=== PATIENT | female | born 1965 | race Caucasian/White ===

== ENCOUNTER 2017-07-04 13:13 | Outpatient (CLI) | payer MEDICARE ==
[~2017-07-04 13:13] MED LIST: Gadobenate Dimeglumine 529 MG/1 ML (20ML VIAL) ONE
--- NOTE | 2017-07-04 16:31 | MRI ---
MRI OF LUMBAR SPINE WITHOUT AND WITH CONTRAST: COMPARISON: None. HISTORY: L5 radiculopathy. Pain in the left leg and buttocks that extends to the foot. Chronic back pain th at worsening. The patient had back surgery in 2014. TECHNIQUE: Multiplanar, multisequence MR images were obtained of the lumbar spine without and with IV contrast. FINDINGS: Generalized disk desiccation and loss of intervertebral disk space height is seen. The vertebral zayda dies demonstrate normal height and alignment without fracture or subluxation. No significant marrow signal abnormality is seen. Edema and enhancement is seen in the paraspinal soft tissues including the medial paraspinal muscula ture. No focal fluid collection is seen. No significant enhancement of the bones is seen. The pat ient has had laminectomy at L4-5. No enhancement is seen within the central canal. There are foci of high T2 signal in the bilateral kidneys measuring up to 3.9 cm in size which repre sent cysts. The other prevertebral soft tissues are unremarkable. T12-L1: Unremarkable. L1-2: A moderate disk-osteophyte complex is seen. No posterior facet arthrosis. Mild to moderate central canal stenosis. Mild bilateral neural foraminal stenosis, left greater than right. L2-3: A small disk-osteophyte complex is seen. No posterior facet arthrosis. Moderate central can al stenosis. No right neural foraminal stenosis. Moderate left neural foraminal stenosis. L3-4: A small disk-osteophyte complex is seen. Mild bilateral posterior facet arthrosis. Mild panda tral canal stenosis. Moderate right and severe left neural foraminal stenosis. L4-5: A small disk-osteophyte complex is associated with a superimposed small central protrusion. No posterior facet arthrosis. No central canal stenosis. Moderate to severe bilateral neural kavon inal stenosis. L5-S1: A small disk-osteophyte complex is seen. No posterior facet arthrosis. No central canal st enosis. Mild bilateral neural foraminal stenosis. IMPRESSION: Degenerative changes of the lumbar spine as above. POS: ELIDIA
== END 2017-07-04 13:14 | disposition home or self-care (01) ==
LOC: SCSMRI 13:13
PROVIDERS: ATTEND Nurse Practitioner Family
DX: M47.26 Other spondylosis with radiculopathy, lumbar region (principal)
CPT/HCPCS: 72158; A9579

== ENCOUNTER 2017-07-15 14:07 | Outpatient (CLI) | payer MEDICARE ==
--- NOTE | 2017-07-15 19:57 | RAD ---
FOUR VIEWS LUMBAR SPINE: Date: 07-15-17 History: Lumbar radiculopathy. Patient complains of low back pain radiating down left leg. Comparison: 07-11-15 FINDINGS: Again, there are five non rib bearing lumbar type vertebral bodies. Multilevel degenerative changes are seen throughout the lumbar spine with multilevel osteophytes and narrowing of the intervertebral disc spaces at all levels. The vertebral body heights are within normal limits. No fracture or subl uxation is seen involving the lumbar spine. No abnormal translational motion is seen between the fle xion and extension views. There is mild right convex curvature of the lumbar spine. Surgical clips overlie the right upper quadrant. Gastric band is noted in place. IMPRESSION: Multilevel degenerative changes throughout the lumbar spine, overall similar to study of 07-11-15. N o fracture or subluxation seen. POS: ELIDIA
== END 2017-07-15 14:08 | disposition home or self-care (01) ==
LOC: TBSIIMAG 14:07
PROVIDERS: ATTEND Neurological Surgery
DX: M47.26 Other spondylosis with radiculopathy, lumbar region (principal)
CPT/HCPCS: 72120

== ENCOUNTER 2018-02-07 09:17 | Outpatient (CLI) | payer MEDICARE ==
[2018-02-07 10:58] LABS: Hemoglobin 13.7 g/dL (12.0-16.0); Mean Corpuscular HGB CONC 32.9 g/dL (32.0-36.0); Mean Corpuscular Hemoglobin 28.3 pg (27.0-31.0); Mean Corpuscular Volume 86.1 fl (81.0-99.0); Platelet Count 391 thou/uL (130-400); RBC Distribution Width 12.6 % (11.5-14.5); Red Blood Cell (RBC) Count 4.84 mill/uL (4.20-5.40); White Blood Cell (WBC) Count 10.5 thou/uL (4.8-10.8)
[2018-02-07 11:06] LABS: PTT 33.4 SEC (22.9-36.1); Prothrombin Time 13.6 SEC (12.0-14.7)
--- NOTE | 2018-02-07 22:16 | EKG ---
Test Reason : Blood Pressure : / mmHG Vent. Rate : 080 BPM Atrial Rate : 080 BPM P-R Int : 176 ms QRS Dur : 086 ms QT Int : 404 ms P-R-T Axes : 047 -52 056 degrees QTc Int : 465 ms Normal sinus rhythm Left axis deviation Nonspecific T wave abnormality Prolonged QT Abnormal ECG When compared with ECG of 27-SEP-2014 15:05, No significant change was found Confirmed by SONY CAM, . SAnuja ([id number]) on 02/07/2018 10:16:03 PM Referred By: RAY Confirmed By:DR. Ang CARDOZA MD
== END 2018-02-07 09:18 | disposition home or self-care (01) ==
LOC: LABBT 09:17
PROVIDERS: ATTEND Neurological Surgery
DX: Z01.812 Encounter for preprocedural laboratory examination (principal); M47.26 Other spondylosis with radiculopathy, lumbar region; M48.061 Spinal stenosis, lumbar region without neurogenic claudication
CPT/HCPCS: 85027; 85610; 85730; 93005; 93010

== ENCOUNTER 2018-02-11 05:37 | Inpatient (IN) | payer MEDICARE ==
[2018-02-11] MEDS ORDERED: CEFAZOLIN/Water 2 GM/20 ML SYRINGE ONE (06:05)
[2018-02-11] MEDS ORDERED: Sodium Chloride 0.9% 10 ML ONE (06:17)
[2018-02-11] MEDS ORDERED: Thrombin 5000 UNITS/5 ML VIAL ONE (06:17)
[2018-02-11] MEDS ORDERED: Bupivacaine HCl 0.5%/Epinephrine 1:200,000/PF 30 ml Vial ONE (06:17)
[2018-02-11] MEDS ORDERED: Fentanyl 100 MCG/2 ML VIAL ONE ×3 (06:30→10:28)
[2018-02-11] MEDS ORDERED: Midazolam HCl 2 mg/2 ml Vial ONE (06:30)
--- NOTE | 2018-02-11 07:54 | HP ---
REASON FOR ADMISSION: Here for back surgery. HISTORY OF PRESENT ILLNESS: Ms. Adams continues to have some low back pain. Standing makes that wo rse. It goes from the gluteal muscles to the posterior thigh and lateral calf to the ankle and to th e medial foot. This is on the left, not the right side. There is some pain in the lateral foot. Th ere is no significant weakness, but there is some numbness. There are no right leg symptoms and no i ncontinence. PAST MEDICAL HISTORY: Hypercholesterolemia, hypertension, hypothyroidism, diabetes, depression, bipo lar disorder, osteoarthritis. PAST SURGICAL HISTORY: Tonsillectomy, cholecystectomy, hysterectomy, breast biopsy, ankle repair, la p band surgery, L4-L5 laminectomy with microdisk and L3 microdisk in 2015. MEDICATIONS: Fluoxetine, levothyroxine, estradiol, metoprolol, lisinopril, metformin, Xanax, cyclobe nzaprine, gabapentin, tramadol, prior Medrol Dosepak. ALLERGIES: NSAIDs causes tongue and throat swelling. FAMILY HISTORY: Father is alive at 68. Mother is alive at 64. Family history is significant for zayda th diabetes and hypertension. SOCIAL HISTORY: Ms. Adams is a nonsmoker. She does not use alcohol or drugs. She is with 7 children. She is a retired nurse. She drinks occasional alcohol. REVIEW OF SYSTEMS: Otherwise negative. PHYSICAL EXAMINATION: NEUROLOGIC: Cranial nerves are grossly intact. There is no truncal ataxia. Alternating rapid motio ns are performed rapidly and smoothly. Upper extremities are normal in their motor and sensory funct ion. She has weakness in the gastroc on the left. There is altered sensation in L5 and S1 dermatome s on the left compared to the right. Cognition is normal. Speech function is normal, both receptive and expressive. ADMISSION FINDINGS AND TEST RESULTS: MRI scan does show multiple levels of lateral recess disease on the left. L5 root was most affected in the lateral recess and in the L5 foramen. There is moderate L5-S1 lateral recess disease around the S1 root. Flexion, extension views are stable. 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 PLAN: L4-L5 and L5-S1 reexploration, decompression of the lateral recesses with a wide L5 foraminoto my. Recovery and informed consent in the office. All questions were answered and she is here for surgery .
[2018-02-11] MEDS ORDERED: HYDROmorphone 0.5 MG/0.5 ML SYRINGE ONE (10:05)
[2018-02-11] MEDS ORDERED: Milk Of Magnesia 30 ML UDCUP PO PRN (10:25)
[2018-02-11] MEDS ORDERED: Ondansetron HCl/PF 4 MG/2 ML Vial IVP PRN ×2 (10:25→11:02)
[2018-02-11] MEDS ORDERED: diphenhydrAMINE 50 MG/ML VIAL IVP PRN (10:25)
[2018-02-11] MEDS ORDERED: tiZANidine HCl 4 MG TAB PO PRN (10:25)
[2018-02-11] MEDS ORDERED: Promethazine 25 MG TAB PO PRN (10:25)
[2018-02-11] MEDS ORDERED: Promethazine HCl 25 MG/ML VIAL IM PRN ×2 (10:25→11:02)
[2018-02-11] MEDS ORDERED: diphenhydrAMINE 25 MG CAP PO PRN (10:25)
[2018-02-11] MEDS ORDERED: Promethazine HCl 12.5 MG SUPP PR PRN (10:25)
[2018-02-11] MEDS ORDERED: Morphine 4 MG/ML VIAL SLOW IVP PRN (10:25)
[2018-02-11] MEDS ORDERED: Bisacodyl 10 MG SUPP PR PRN (10:25)
[2018-02-11] MEDS ORDERED: Acetaminophen/Codeine 30-300mg Tablet PO PRN (10:25)
--- NOTE | 2018-02-11 10:55 | OP ---
DATE OF PROCEDURE: 02/11/2018 SURGEON: Corinne Anthony TANK ERECTOR: JUDE Ortez. PREOPERATIVE INDICATION: Treat pain, prevent neurological deterioration. 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 OPERATIVE PROCEDURE: Reopening lumbar incision, repeat laminectomy, medial facetectomy, foraminotomy L4-L5 and L5-S1. PREOPERATIVE MEDICATION: Ancef 2 grams IV. DRAIN NUMBER: Zero. DRAIN TYPE: None. OPERATIVE DICTATION: The patient was brought to the operating room. General endotracheal anesthesia was induced. The patient was positioned prone on the operating room table. The chest and hips supp orted by gel-filled chest rolls. A lateral fluoro radiograph was used to confirm that the previous i ncision would give us access to the L4-L5 and S1 segments of the lumbosacral spine. We marked out th e previous incision and the skin was sterilely prepped and draped. We opened with a 10 blade knife a nd controlled bleeding with bipolar cautery. We used monopolar cautery to dissect through subcutaneo us tissues to thoracodorsal fascia. We incised the fascia in the midline and reflected the paraspina l muscles off the spinous process and lamina of L3, L5, and S1. The L4 spinous process was missing. Self-retaining retractors were placed and a lateral fluoro radiograph confirmed the levels upon whic h we were operating. We then dissected through scar tissue. We identified the L5 lamina, the remnan t of the L4 lamina. We used curettes to separate scar tissue from the undersurface of the lamina and carefully performed a laminectomy removing the remainder of the L4 lamina and the entire L5 lamina. We then brought the operative microscope in the field. Under microscopic magnification and using microsurgical techniques, we developed a plane between scar tissue and the pedicles on the left side at L4-L5 and L5-S1. We identified the traversing and exiti ng L5 and S1 nerve roots. We carefully mobilized them off of the L5 and S1 pedicles. We performed f oraminotomies over the exiting L4, L5 and S1 nerve roots until a Valles ball probe could pass through the lateral recess and out the foramen without compression. In mobilizing the S1 nerve root mediall y, it was densely adherent to the disk space and the bone beneath it. As it was mobilized, there is thinning of the dura where we could see nerve fibers. No brisk CSF leak was noted. Nonetheless, we brought a pledget of the patient's fat and left it over the thin dura and held it in place with DuraS eal tissue sealant. This was after copiously irrigating with bacitracin irrigation. We infused loca l anesthetic in the paraspinal muscles. We closed the wound in anatomic layers and we applied a ster ile dressing. This is a clean case and no contamination.
[2018-02-11] MEDS ORDERED: Promethazine HCl 25 MG/ML VIAL SLOW IVP PRN (11:02)
[2018-02-11] MEDS ORDERED: Glycopyrrolate 0.2 MG/ML 5 ML SYRINGE ONE (11:44)
[2018-02-11] MEDS ORDERED: PROPOFOL 200 MG/20 ML VIAL ONE (11:44)
[2018-02-11] MEDS ORDERED: Ondansetron HCl/PF 4 MG/2 ML Vial ONE (11:44)
[2018-02-11] MEDS ORDERED: Lidocaine 1% PF 5 ML VIAL ONE (11:44)
[2018-02-11] MEDS: Morphine 4 MG/ML VIAL SLOW IVP PRN ×2 (11:57→19:13)
[2018-02-11] MEDS: Sodium Chloride 0.9% 1,000 ML IV SCH (11:57)
[2018-02-11 12:29] VITALS: BMI 36.0
[2018-02-11] MEDS: CEFAZOLIN/Water 2 GM/20 ML SYRINGE SLOW IVP SCH ×2 (13:29→21:56)
[2018-02-11] MEDS: Acetaminophen/Codeine 30-300mg Tablet PO PRN ×2 (15:25→21:55)
[2018-02-11] MEDS: Cyclobenzaprine 10 MG TAB PO PRN (19:15)
[2018-02-12] MEDS: Morphine 4 MG/ML VIAL SLOW IVP PRN (00:41)
[2018-02-12] MEDS: Sodium Chloride 0.9% 1,000 ML IV SCH ×2 (00:43→10:38)
[2018-02-12] MEDS: Acetaminophen/Codeine 30-300mg Tablet PO PRN (01:03)
[2018-02-12] MEDS: CEFAZOLIN/Water 2 GM/20 ML SYRINGE SLOW IVP SCH (05:47)
[2018-02-12] MEDS: Cyclobenzaprine 10 MG TAB PO PRN (05:47)
--- NOTE | 2018-02-12 06:43 | PRG ---
DATE OF SERVICE: 02/12/2018 Ms. Adams is 1 day out from a redo lumbar decompression with left-sided foraminotomies over the L5 a nd S1 nerve roots. We freed up the nerve roots nicely. There is thinning of the dura underneath the S1 nerve root, for which we placed a patch and added some glue and she has been flat overnight. She notices better sensation in her lower extremities and feels good compared to what she did before audra nelson. We are going to bring the head of bed up over the next couple hours and then ambulate in the h alls. If she is ambulating, tolerating a general diet, and voiding on her own, then she can be disch arged. Follow up arrangements will be made by our scheduling coordinators and we went over activity restrictions and wound care.
[2018-02-12 12:11] VITALS: BP 129/76; TEMP 98.6
== END 2018-02-12 15:16 | disposition home or self-care (01) | DRG 520 ==
LOC: SDC 05:37 → SURG A 11:36
PROVIDERS: ADMIT Neurological Surgery; ATTEND Neurological Surgery
PROC: 0RB30ZZ Excision of Cervical Vertebral Disc, Open Approach (ICD-10-PCS; principal; 2018-02-11)
PROC: 0SB20ZZ Excision of Lumbar Vertebral Disc, Open Approach (ICD-10-PCS; 2018-02-11)
PROC: 0SB40ZZ Excision of Lumbosacral Disc, Open Approach (ICD-10-PCS; 2018-02-11)
DX: M48.062 Spinal stenosis, lumbar region with neurogenic claudication (principal); M48.061 Spinal stenosis, lumbar region without neurogenic claudication; M47.26 Other spondylosis with radiculopathy, lumbar region; E78.5 Hyperlipidemia, unspecified; I10 Essential (primary) hypertension; E03.9 Hypothyroidism, unspecified; E11.9 Type 2 diabetes mellitus without complications; F32.9 Major depressive disorder, single episode, unspecified; F31.9 Bipolar disorder, unspecified; M19.90 Unspecified osteoarthritis, unspecified site; Z93.1 Gastrostomy status; Z79.899 Other long term (current) drug therapy; Z79.84 Long term (current) use of oral hypoglycemic drugs; F41.9 Anxiety disorder, unspecified; Z88.6 Allergy status to analgesic agent
CPT/HCPCS: 76001; A4216; J0670; J1170; J1200; J2001; J2250; J2270; J2405; J2550; J2704; J3010; J3370; J3490

== ENCOUNTER 2018-04-07 14:14 | Outpatient (CLI) | payer MEDICARE ==
--- NOTE | 2018-04-07 15:41 | RAD ---
TWO VIEWS OF THE LUMBAR SPINE: INDICATION: Followup surgery. COMPARISON: Prior exam dated 07/11/15 and 07/15/17. FINDINGS: Since the comparison examination, there has been interval laminectomies at L4 and L5. Degenerative d isk disease and dextroscoliosis is stable. Very mild retrolisthesis of L3 on L4 is stable. Vertebra l body heights are preserved. There is postprocedure change of cholecystectomy and laparoscopic yuri rebeca band placement. IMPRESSION: Postoperative lumbar spine. POS: ELIDIA
== END 2018-04-07 14:15 | disposition home or self-care (01) ==
LOC: TBSIIMAG 14:14
PROVIDERS: ATTEND Neurological Surgery
DX: M54.16 Radiculopathy, lumbar region (principal); M54.5 Low back pain; Z98.890 Other specified postprocedural states
CPT/HCPCS: 72100

== ENCOUNTER 2019-01-14 13:01 | Outpatient (CLI) | payer MEDICARE ==
--- NOTE | 2019-01-14 14:09 | RAD ---
LUMBAR SPINE FOUR VIEWS: 01/14/2019 HISTORY: Evaluate the lumbar spine following surgery. Sciatica. Left lower extremity and right lower extremi ty radiculopathy. COMPARISON: 04/07/2018 FINDINGS: Lap band again noted. Clips in right upper quadrant suggest prior cholecystectomy. There is evidenc e of bilateral laminectomy at L4 and L5. There is disc space narrowing with degenerative endplate change and lateral osteophyte formation at L1-2 and L3-4. There is disc space narrowing at multiple levels throughout the lumbar spine on lateral imaging, most prominent at L1-2, L2-3, L4-5, and L5-S1. Neutral lateral imaging demonstrates retrolisthesis at L2-3 measuring 5 mm. On flexion-exten marty, this retrolisthesis decreases to approximately 1 mm. On the extension imaging, there is retrolisthesis at L1-2 measuring 4 mm and at L2-3 measuring 4 mm. No acute fracture or evidence of d islocation is seen. Facet hypertrophy noted at L3-4 and L4-5. IMPRESSION: Postoperative and degenerative changes of the lumbar spine, as detailed above. Transcribed Date/Time: 01/14/2019 2:15 PM
[2019-01-14] MEDS ORDERED: Gadobenate Dimeglumine 529 MG/1 ML (20ML VIAL) ONE (14:43)
--- NOTE | 2019-01-14 15:04 | MRI ---
Lumbar spine MRI with and without contrast: 01/14/2019 COMPARISON: 07/04/2017 HISTORY: Multiple prior back surgeries, sciatica bilateral lower extremities, bilateral lower extremi ty radiculopathy TECHNIQUE: Multiplanar multisequence MR imaging of the lumbar spine is provided with and without cont rast. FINDINGS: Bilateral laminectomy changes are noted at L4 and L5. Nonspecific fluid collection seen pos terior to the thecal sac at the L5 level measuring 3.2 cm craniocaudal dimension 1.6 cm AP dimension and 1.4 cm transverse dimension. The sagittal STIR imaging demonstrates no focal area of osseous marrow edema. There is no significant anterolisthesis or retrolisthesis within the lumbar spine. On the basis of 5 lumbar type vertebral bodies, conus medullaris terminates at the L1-2 level. T11-12: Disc space narrowing and disc desiccation with small central/right paracentral disc protrusio n. No significant central canal or neural foraminal stenosis. T12-L1: Intervertebral disc height and signal intensity appears within normal limits with no signific ant central canal or neural foraminal stenosis. Right-sided anterior osteophyte formation present. L1-2: Disc space narrowing and disc desiccation present. Left paracentral/left foraminal disc protrus ion noted, slightly more prominent than on the prior examination. Mild left lateral recess stenosis and left neural foraminal stenosis. No significant right neural foraminal stenosis. L2-3: Disc space narrowing and disc desiccation with mild disc bulge and mild stable left lateral rec ess stenosis. Bilateral facet hypertrophy. Mild/left neural foraminal stenosis. No significant right neural foraminal stenosis. L3-4: Stable small central disc protrusion. No central canal stenosis. Bilateral facet hypertrophy. O n the basis of facet hypertrophy and disc protrusion there is severe left neural foraminal stenosis. There is mild/moderate right neural foraminal stenosis L4-5: Disc space narrowing and disc desiccation with mild disc bulge. No significant central canal st enosis. Bilateral facet hypertrophy. Severe left and moderate right neural foraminal stenosis L5-S1: Disc space narrowing and disc desiccation. No significant central canal stenosis. Bilateral fa cet hypertrophy, left greater than right. Severe left and mild right neural foraminal stenosis. Postcontrast imaging demonstrates mild nonspecific rim enhancement of the postoperative fluid collect ion posterior to the dura at the L5 level. Rim enhancement can be seen on the basis of an infected or a sterile postoperative collection. Postcontrast imaging demonstrates no abnormal enhancement involving the contents of the thecal sac, i rashad osseous structures, or the intervertebral discs. Configuration of nerve roots of the cauda equina is stable when compared to the prior examination. Mi ld clumping of the nerve roots inferiorly on the left noted, which could signify stable arachnoiditis in the proper clinical setting. When compared to the prior examination the neural foraminal stenosis on the left at L5-S1 has worsene d. Neural foraminal stenosis has also worsened at L4-5 on the right. Right neural foraminal stenosis at L3-4 has worsened since the prior exam. Imaged retroperitoneal structures demonstrate a round T2 hyperintense lesion measuring approximately 3.9 cm in greatest dimension, unchanged when compared to the 2017 exam. Motion artifact limits detailed assessment. There may be mild complexity along the inferior and posterior margin of this les ion. Follow-up renal ultrasound advised. IMPRESSION: 1. Multilevel degenerative change within the lumbar spine, progressed since the prior exam. Postopera tive fluid collection posterior to the dura noted at L5. 2. T2 hyperintense 3.9 cm left renal lesion. Recommend full assessment via renal ultrasound.
== END 2019-01-14 13:02 | disposition home or self-care (01) ==
LOC: TBSIIMAG 13:01
PROVIDERS: ATTEND Nurse Practitioner Family
DX: M48.062 Spinal stenosis, lumbar region with neurogenic claudication (principal); M47.816 Spondylosis without myelopathy or radiculopathy, lumbar region; N28.9 Disorder of kidney and ureter, unspecified; Z98.890 Other specified postprocedural states
CPT/HCPCS: 72110; 72158; A9577

== ENCOUNTER 2019-01-23 12:40 | Outpatient (CLI) | payer MEDICARE ==
--- NOTE | 2019-01-23 13:55 | ULT ---
US Renal Bilateral STANDARD History: [Renal abnormality seen on recent MRI] Comparison: MRI January 14, 2019 Findings: Real-time grayscale and color evaluation of the kidneys and urinary bladder was performed. Right kidney measures 12.5 x 5.8 x 6.4 cm left kidney measures 13.8 x 6.5 x 7.6 cm. There is a mixed solid and cystic mass interpolar left kidney with central cystic component and peripheral soft tissue which is vascular. Impression: Concern for cystic malignancy of the left kidney. MRI renal protocol with and without con trast recommended.
== END 2019-01-23 12:41 | disposition home or self-care (01) ==
LOC: BICULT 12:40
PROVIDERS: ATTEND Nurse Practitioner Family
DX: N28.9 Disorder of kidney and ureter, unspecified (principal); R93.89 Abnormal findings on diagnostic imaging of other specified body structures
CPT/HCPCS: 76770

== ENCOUNTER 2019-02-05 10:35 | Outpatient (CLI) | payer MEDICARE ==
--- NOTE | 2019-02-05 11:49 | MRI ---
MR abdomen with and without IV contrast INDICATION: History of cystic malignancy of the left kidney TECHNIQUE: Multiplanar, multisequence MR images were obtained of the abdomen with and without IV cont rast. Contrast: 20 cc MultiHance. COMPARISON: Prior renal ultrasound dated January 23, 2019 FINDINGS: Liver: There is diffuse fatty infiltration Gallbladder: Not visualized, presumed to be surgically absent. Pancreas: Normal. Adrenal glands: Normal. Kidneys: There is a 5.2 x 4.6 x 4.6 cm complex cystic mass consistent with a cystic renal malignancy. There are small subcentimeter cysts within the right kidney. There is appropriate flow voids and enhancement in the left renal vein. Spleen: The spleen is enlarged measuring 13 cm. Lymphadenopathy or free fluid: There are mildly prominent lymph nodes seen within the upper abdomen. One of the largest is seen within the portacaval region measuring 1.3 cm. A periportal lymph node measures 8 mm. Vasculature: Appropriate flow voids are demonstrated. Bowel: There is a laparoscopic gastric band in place. Osseous structures: No signal abnormality evident. IMPRESSION: 1. Complex cystic mass of the left mid kidney is suspicious for cystic renal malignancy. 2. Nonspecific mildly enlarged portacaval lymph node. 3. Fatty liver with mild splenomegaly 4. Laparoscopic gastric band
== END 2019-02-05 10:36 | disposition home or self-care (01) ==
LOC: MRI 10:35
PROVIDERS: ATTEND Nurse Practitioner Family
DX: N28.89 Other specified disorders of kidney and ureter (principal); N28.1 Cyst of kidney, acquired; R59.0 Localized enlarged lymph nodes; K76.0 Fatty (change of) liver, not elsewhere classified; R16.1 Splenomegaly, not elsewhere classified; Z98.890 Other specified postprocedural states
CPT/HCPCS: 74183

== ENCOUNTER 2019-10-26 14:03 | Outpatient (CLI) | payer MEDICARE ==
--- NOTE | 2019-10-26 14:35 | RAD ---
LUMBAR SPINE 4 VIEWS: Date: 10/26/2019 HISTORY: Back pain radiating down to both legs. FINDINGS: Mild levoscoliotic changes of the upper lumbar/lower thoracic vertebral column. Extensive laminectomy changes, particularly at L4, L5, and S1. Severe multilevel disc osteophytosis and facet arthrosis. M inimal retropulsion at L1-L2 with severe focal disc osteophytosis. IMPRESSION: Severe spondylosis. Laminectomy changes at L4, L5, and S1. Other findings as above. POS: OFF
== END 2019-10-26 14:04 | disposition home or self-care (01) ==
LOC: TBSIIMAG 14:03
PROVIDERS: ATTEND Neurological Surgery
DX: M47.26 Other spondylosis with radiculopathy, lumbar region (principal); M25.78 Osteophyte, vertebrae; M41.9 Scoliosis, unspecified; Z98.890 Other specified postprocedural states
CPT/HCPCS: 72110

== ENCOUNTER 2021-01-04 14:56 | Outpatient (CLI) | payer MEDICARE | END 2021-01-04 14:57 | disposition home or self-care (01) | LOC: BICULT 14:56 | PROVIDERS: ATTEND Family Medicine | DX: K11.20 Sialoadenitis, unspecified (principal) | CPT/HCPCS: 76999 ==

== ENCOUNTER 2022-01-04 07:59 | Outpatient (CLI) | payer MEDICARE ==
[2022-01-04] MEDS ORDERED: Magnevist 469MG/ML 20 ML VIAL ONE (15:17)
== END 2022-01-04 08:00 | disposition home or self-care (01) ==
LOC: BICMRI 07:59
PROVIDERS: ATTEND Nurse Practitioner Family
DX: M48.062 Spinal stenosis, lumbar region with neurogenic claudication (principal); M51.36 Other intervertebral disc degeneration, lumbar region; Z98.890 Other specified postprocedural states
CPT/HCPCS: 72158; 82565; A9579